=== PATIENT | male | born 1980 | race Caucasian/White ===

== ENCOUNTER → 2019-12-25 | Outpatient (CLI) | payer BC ==
[~2019-12-25] MED LIST: CATHETER FLUSH 10 ML SYR IV PRN
--- NOTE | 2019-12-25 11:37 | Diagnostic Imaging Report ---
EXAMINATION: Hepatobiliary scan. INDICATION: Right upper quadrant pain. TECHNIQUE: This study was performed following administration of 5.41 mCi of Choletec. 8 ounces Ensure was also utilized for a calculation of the ejection fraction. COMPARISON: There are no prior studies available for comparison. FINDINGS: There is uptake of the radiotracer by the gallbladder before 30 minutes. This would weigh against the diagnosis of acute cholecystitis. There is also extension of the radiotracer into the small bowel indicating that the common bile duct is not obstructed. The ejection fraction is 36% (normal greater than 35%). IMPRESSION: 1. There is no evidence for acute cholecystitis or for obstruction of the common bile duct. 2. The ejection fraction is 36% and at the lowest end of normal. Dictated by: Dictated on workstation # [id number]
== END ==
LOC: CARD 08:54
PROVIDERS: ATTEND Family Medicine
DX: R10.11 Right upper quadrant pain (principal)
CPT/HCPCS: 78227